=== PATIENT | female | born 1980 | race Caucasian/White ===

== ENCOUNTER 2016-08-17 16:47 | Emergency (ER) | payer OTHER ==
--- NOTE | 2016-08-17 16:47 | NUR ---
ARRIVED PT ARRIVED VIA EMS, CPR IN PROGRESS VIA EMS. PER EMS PT WAS FOUND BY BOYFRIEND IN BED, BOYFRIEND STATES THAT HE HEARD HER GURGLING, CALLED 911 AND CARRIED HER TO THE FRONT DOOR. FIRE ARRIVED BEFORE EMS AND STARTED CPR, EMS ARRIVED @ 1620 AND TOOK OVER CPR, 18G IN LEFT AC ESTABLISHED BY EMS AND A IO TO RIGHT TIRADO WHICH WAS NO GOOD AND NOT ACCESSED. PT WAS INTUBATED IN FIELD AND BEING BAGGED ON ARRIVAL. RESPIRATORY TOOK OVER VENTALATING PT.
--- NOTE | 2016-08-17 16:47 | NUR ---
EPI ONE AMP EPI IN
--- NOTE | 2016-08-17 16:47 | NUR ---
CPR PT PLACED ON ED 1 STRETCHER, PULSE CHECK, NO PULSE, CPR STARTED BY ED STAFF
--- NOTE | 2016-08-17 16:49 | NUR ---
BICARB 1 AMP BICARB IN
--- NOTE | 2016-08-17 16:50 | NUR ---
RHYTHM CHECK RHYTHM CHECK, SHOCKED 200J, CPR RESTARTED
--- NOTE | 2016-08-17 16:50 | NUR ---
PULSE CHECK CPR STOPPED, PULSE CHECKED, NO PULSE
--- NOTE | 2016-08-17 16:51 | NUR ---
EPI 1 AMP EPI GIVEN
--- NOTE | 2016-08-17 16:52 | NUR ---
AMIODARONE 300MG AMIODARONE GIVEN
--- NOTE | 2016-08-17 16:53 | NUR ---
RHYTHM CHECK RHYTHM CHECK, DEFIB 200J, CPR STARTED
--- NOTE | 2016-08-17 16:53 | NUR ---
PULSE CPR STOPPED, PULSE CHECK, NO PULSE.
--- NOTE | 2016-08-17 16:54 | NUR ---
BICARB 1 AMP OF BICARB IN
--- NOTE | 2016-08-17 16:55 | NUR ---
EPI 1 AMP OF EPI IN
[2016-08-17] MEDS ORDERED: CORDARONE ONE (16:57)
[2016-08-17] MEDS ORDERED: ROMAZICON IV ONE (16:57)
[2016-08-17] MEDS ORDERED: NARCAN ONE (16:57)
--- NOTE | 2016-08-17 16:57 | NUR ---
PULSE CHECK CPR STOPPED, PULSE CHECKED, NO PULSE.
--- NOTE | 2016-08-17 16:58 | NUR ---
RHYTHM CHECK RHYTHM CHECK, DEFIB 200J, CPR STARTED, REYEZ CATH IN 16F
[2016-08-17] MEDS ORDERED: CALCIUM CHLORIDE IV ONE (17:00)
[2016-08-17] MEDS ORDERED: CORDARONE IV ONE (17:00)
[2016-08-17] MEDS ORDERED: EPINEPHRINE IV ONE (17:00)
--- NOTE | 2016-08-17 17:00 | NUR ---
AMIODARONE AMIODARONE 150MG IV PUSH
--- NOTE | 2016-08-17 17:01 | NUR ---
PULSE CHECK CPR STOPPED PULSE CHECK, NO PULSE
--- NOTE | 2016-08-17 17:01 | NUR ---
RHYTHM CHECK RHYTHM CHECK , DEFIB 350J, CPR STARTED
--- NOTE | 2016-08-17 17:02 | NUR ---
ROMAZICON ROMAZICON 0.5MG IV GIVEN
--- NOTE | 2016-08-17 17:03 | NUR ---
PULSE CHECK CPR STOPPED, PULSE CHECKED, NO PULSE
--- NOTE | 2016-08-17 17:03 | NUR ---
NARCAN NARCAN 0.4MG GIVEN IV
--- NOTE | 2016-08-17 17:04 | NUR ---
RHYTHM CHECK RHYTHM CHECK, DEFIB 350J, CPR STARTED
--- NOTE | 2016-08-17 17:05 | NUR ---
ABG ABG DRAWN
--- NOTE | 2016-08-17 17:06 | NUR ---
EPI 1 AMP EPI IN
--- NOTE | 2016-08-17 17:07 | NUR ---
RHYTHM CHECK RHYTHM CHECK, CPR RESTARTED
--- NOTE | 2016-08-17 17:07 | NUR ---
PULSE CPR STOPPED, PULSE CHECKED, NO PULSE.
--- NOTE | 2016-08-17 17:08 | NUR ---
BICARB 1 AMP BICARB IN
--- NOTE | 2016-08-17 17:09 | NUR ---
RHYTHM CHECK RHYTHM CHECK, DEFIB 350J, CPR RESTARTED
--- NOTE | 2016-08-17 17:09 | NUR ---
PULSE CHECK CPR STOPPED, PULSE CHECK, NO PULSE
--- NOTE | 2016-08-17 17:11 | NUR ---
CALCIUM CHLORIDE 1 AMP CALCIUM CHLORIDE IN
--- NOTE | 2016-08-17 17:12 | NUR ---
PULSE CPR STOPPED, PULSE CHECK, NO PULSE
--- NOTE | 2016-08-17 17:13 | NUR ---
RHYTHM CHECK RHYTHM CHECK, NO PULSE
--- NOTE | 2016-08-17 17:14 | NUR ---
TIME OF DR QUIGLEY CALLED TIME OF
[2016-08-17 17:19] LABS: ABG PCO2 61.4 mmHg (35.0-45.0); ABG PH 7.062 (7.350-7.450); BE(B) -13.7 mmol/L (-2.0-2.0); HCO3act 17.1 mmol/L (22.0-26.0)
--- NOTE | 2016-08-17 17:30 | NUR ---
SARAH CALLED DISPATCH TO SEND OUT SARAH
--- NOTE | 2016-08-17 17:59 | NUR ---
SARAH BLANCAS IN ED AT THIS TIME
--- NOTE | 2016-08-17 18:03 | NUR ---
SARAH BLANCAS AT PT BEDSIDE AT THIS TIME
--- NOTE | 2016-08-17 18:10 | ER.PDOC ---
General Chief Complaint: Requesting Medical Care Stated Complaint: CODE Time seen by MD: 04:45 Source: EMS Exam Limitations: clinical condition History of Present Illness Initial Comments Pt brought by ambulance in code 99, and with chest compressions, intubated and cyanotic. Apparently pt took an unknown number of medication. Boyfriend found her sleeping, unresponsive, gurgling and greyish. Called 911, on arrival CPR started pt intubated and EMS working on scene for about 25 minutes, shocked several times and did not respond to efforts of resuscitation, in our ER pt also shocked several times, given epi and more according to protocol. Pt never recovered conscience, or a regular rhythm, called code at 17:14 Intent: Suicide Review of Systems Constitutional: see HPI EENTM: see HPI Respiratory: see HPI Cardiovascular: see HPI Gastrointestinal: see HPI Genitourinary: see HPI Musculoskeletal: see HPI Skin: see HPI Psychiatric/Neurological: see HPI Physical Exam General Appearance: Severe distress Skin: Cyanosis, Mottled Results/Orders Results/Orders Laboratory Tests Test 08/17/16 17:05 Blood Gas Sample Site Rt femoral artery Blood Gas pH 7.062 (7.350-7.450) Blood Gas PCO2 61.4 mmHg (35.0-45.0) Blood Gas PO2 81.0 mmHg (75.0-100.0) Blood Gas HCO3 17.1 mmol/L (22.0-26.0) Blood Gas Base Excess -13.7 mmol/L (-2.0-2.0) Sotero Test N/a Arterial Blood Oxygen Saturation 82.6 % (95-) Deoxyhemoglobin 17.2 % (0.2-0.6) Carboxyhemoglobin 0.8 % (0.5-1.5) Methemoglobin 0.3 % (0.2-0.6) Total Hemoglobin 14.0 % (13.5-17.5) Total Oxygen Concentration 16.2 % (13.5-17.5) Lactic Acid (Blood Gas) 16.2 MMOL/L (0.5-1.0) Oxygen Delivery Method (LAB) Ambu FiO2 100 % (20-101) Bicarbonate 19.0 mmol/L (23-27) Departure Time of Disposition: 17:14 Disposition: 20 Impression: Primary Impression: Cardiovascular collapse Condition: Referrals: PCP,UNKNOWN (PCP) PRIMARY CARE PROVIDER Additional Instructions: FOLLOW UP WITH PRIMARY CARE PHYSICIAN BJORN QUIGLEY MD Aug 17, 2016 18:10
--- NOTE | 2016-08-17 18:13 | NUR ---
[facility] CALLED [facility], THEY STATED THEY WOULD CALL BACK AFTER THE SARAH DETERMINED IF BEING SENT FOR AUTOPSY.
[2016-08-17 18:49] LABS: UR BENZODIAZEPINE QUAL NEGATIVE (NEGATIVE); UR COCAINE QUAL NEGATIVE (NEGATIVE)
--- NOTE | 2016-08-17 19:01 | NUR ---
FAMILY SARAH TOOK FAMILY INTO ROOM TO VIEW PT
--- NOTE | 2016-08-17 19:05 | NUR ---
FAMILY FAMILY LEFT ROOM, SARAH STILL LOOKING @ PT CHART AND MEDIATIONS. GAVE REPORT TO IRVING KINCAID ON STATUS OF PT.
--- NOTE | 2016-08-17 19:35 | NUR ---
AWAITING MORTUARY AWAITNG MORTUARY TO ASSOCIATE PROGRAMMER ANALYST PATIENT FOR AUTOPSY, STOCK TRANSFER CLERK IN FRON TOF DOOR
--- NOTE | 2016-08-17 20:02 | NUR ---
MORTUARY HERE TO LINSEED OIL PRESS TENDER PATIENT TO TRANSPORT FOR AUTOPSY
== END 2016-08-17 17:14 | disposition expired ==
LOC: ER 16:47
DX: R57.0 Cardiogenic shock (principal)
CPT/HCPCS: 36415; 36600; 80307; 80324; 80349; 82803; 92950; 96374; 96375; 99285; J0171; J3490; J0282; J2310